=== PATIENT | female | born 1985 | race Caucasian/White ===

== ENCOUNTER 2018-07-06 09:00 | Emergency (ER) | payer OTHER ==
[2018-07-06 09:14] VITALS: BP 157/87
--- NOTE | 2018-07-06 09:28 | UC ---
Skin Complaint HPI - HPI Summary HPI Summary: had a little tenderness L earlobe (earring piercing) 3 days ago, became red and swollen yesterday, took earring out. today much worse, more swollen, very painful. now side of neck is painful as well - History of Current Complaint Chief Complaint: UCSkin Time Seen by Provider: 07/06/18 09:02 Stated Complaint: SKIN COMPLAINT Hx Obtained From: Patient Hx Last Menstrual Period: 3 weeks ago ?: No Onset/Duration: Gradual Onset Timing: Constant Onset Severity: Worse Since: - this am Pain Intensity: 5 Location: Ear (Left) Character: Swelling, Redness, Painful Aggravating Factor(s): Touch Alleviating Factor(s): Nothing Associated Signs & Symptoms: Positive: Drainage - "weepy" - Allergy/Home Medications Allergies/Adverse Reactions: Allergies Allergy/AdvReac Type Severity Reaction Status Date / Time No Known Allergies Allergy Verified 07/06/18 09:14 Home Medications: Home Medications Acetaminophen [Pain Relief] 1,000 mg PO ONCE PRN 07/06/18 [History Confirmed ] l-Norgest/E.estradiol-E.estrad [Seasonique 0.15-0.03-0.01 Tab] 1 tab PO DAILY [History Confirmed 07/06/18] PMH/Surg Hx/FS Hx/Imm Hx Previously Healthy: Yes - Surgical History Surgical History: None - Family History Known Family History: Positive: None Negative: Hypertension, Diabetes - Social History Occupation: Employed Full-time Lives: With Family Alcohol Use: Rare Substance Use Type: None Smoking Status (MU): Former Smoker Type: Cigarettes Amount Used/How Often: 1 ppd - quit 5 years ago - Immunization History Most Recent Influenza Vaccination: needed Most Recent Tetanus Shot: 12/25/12 Most Recent Pneumonia Vaccination: none Review of Systems All Other Systems Reviewed And Are Negative: Yes Constitutional: Positive: Negative ENT: Positive: Negative Respiratory: Positive: Negative Gastrointestinal: Positive: Negative Neurovascular: Positive: Negative Musculoskeletal: Positive: Negative Neurological: Positive: Negative Psychological: Positive: Negative Physical Exam Triage Information Reviewed: Yes Appearance: Well-Appearing, No Pain Distress, Well-Nourished Vital Signs: Initial Vital Signs Temp 98.9 F 07/06/18 09:08 Pulse 104 07/06/18 09:08 Resp 16 07/06/18 09:08 BP 157/87 07/06/18 09:08 Pulse Ox 100 07/06/18 09:08 Vital Signs Reviewed: Yes ENT: Positive: TMs normal Neck: Positive: Tenderness @ - L lateral neck, no streaking noted. Negative: Enlarged Nodes @ Respiratory Exam: Normal Cardiovascular Exam: Normal Neurological Exam: Normal Psychological Exam: Normal Skin: Positive: Other - l earlobe erythemic, swollen, very tender, no drainage Course/Dx - Differential Diagnoses - Skin Complaint Differential Diagnoses: Abscess, Cellulitis, Foreign Body - Diagnoses Provider Diagnosis: Cellulitis Discharge - Sign-Out/Discharge Documenting (check all that apply): Patient Departure All imaging exams completed and their final reports reviewed: No Studies - Discharge Plan Condition: Good Disposition: HOME Prescriptions: Cephalexin CAP* [Keflex CAP*] 500 mg PO QID #28 cap Mupirocin 2% OINT* [Bactroban 2 % Oint*] 1 applic TOPICAL BID #1 tube Patient Education Materials: Cellulitis (ED) Referrals: Handy Braun MD [Primary Care Provider] - 2 Days (if no better) Additional Instructions: apply warm packs to ear three times a day for 2-3 days start antibiotic and ointment as directed ibuprofen 600mg every 6 hours as needed for pain - Billing Disposition and Condition Condition: GOOD Disposition: Home - Attestation Statements Provider Attestation: I was available for consult. This patient was seen by the MAKEDA. The patient was not presented to , seen by or examined by me Malena Zhang MD
== END 2018-07-06 09:40 | disposition home or self-care (01) ==
LOC: UCEAST 09:00
DX: H60.12 Cellulitis of left external ear (principal); Z87.891 Personal history of nicotine dependence
CPT/HCPCS: 99212; G0463

== ENCOUNTER 2018-07-08 07:02 | Emergency (ER) | payer OTHER ==
[2018-07-08 07:14] VITALS: BP 144/94
[2018-07-08] MEDS ORDERED: Lidocaine 1% MPF* 2 ML VIAL INJ ONE (07:25)
[2018-07-08] MEDS ORDERED: Lidocaine 1%* 5 ML VIAL ONE (07:29)
--- NOTE | 2018-07-08 07:34 | UC ---
General HPI - HPI Summary HPI Summary: Stated 4 days ago had redness and swelling of left ear lobe. Seen in Urgent care on 07/06 and was diagnosed with cellulitis and started on keflex and bactroban. Patient took two full days of keflex. She is putting warm compresses on the ear with some drainage. The ear itself is feeling better but over the past 24 hours she has had severe left sided neck pain and shoulder pain. This morning she noticed redness streaking down the left side of her neck. She has been taking tylenol and ibuprofen around the clock so unclear if she has been having fevers. Feels run down. No N/V. Able to swallow and take PO without issue. Meds: reviewed. - History of Current Complaint Chief Complaint: Alan Stated Complaint: RECHECK EAR LOBE Time Seen by Provider: 07/08/18 07:11 Hx Last Menstrual Period: 3 weeks ago Pain Intensity: 5 - Allergy/Home Medications Allergies/Adverse Reactions: Allergies Allergy/AdvReac Type Severity Reaction Status Date / Time No Known Allergies Allergy Verified 07/08/18 07:14 PMH/Surg Hx/FS Hx/Imm Hx Previously Healthy: Yes - Surgical History Surgical History: Yes Surgery Procedure, Year, and Place: LEAP procedure - Family History Known Family History: Positive: None Negative: Hypertension, Diabetes - Social History Alcohol Use: Rare Substance Use Type: None Smoking Status (MU): Former Smoker Type: Cigarettes Amount Used/How Often: 1 ppd - quit 5 years ago When Did the Patient Quit Smoking/Using Tobacco: 10 yrs - Immunization History Most Recent Influenza Vaccination: needed Most Recent Tetanus Shot: 12/25/12 Most Recent Pneumonia Vaccination: none Review of Systems All Other Systems Reviewed And Are Negative: Yes Physical Exam Triage Information Reviewed: Yes Appearance: Well-Appearing, Pain Distress Vital Signs: Initial Vital Signs Temp 98.6 F 07/08/18 07:09 Pulse 110 07/08/18 07:09 Resp 16 07/08/18 07:09 BP 144/94 07/08/18 07:09 Pulse Ox 100 07/08/18 07:09 Vital Signs Reviewed: Yes Eye Exam: Normal Eyes: Positive: Conjunctiva Clear ENT: Positive: Other - left ear lobe, edematous and erythematous with dried purulent drainage, unable to express any fluid Neck: Positive: Other: - signficant tenderness and adenopathy over left neck with limited ROM Respiratory: Positive: Lungs clear, Normal breath sounds Cardiovascular: Positive: RRR, No Murmur Course/Dx - Course Course Of Treatment: This is a 32 yr old previously healthy female who presents with left ear lobe erythema and edema who has been on keflex for two days, now with left neck and shoulder pain. I am concerned for a deep neck space infection. Recommend go directly to the ER for blood culture, labs, and neck CT to evaluate for an abscess. Discussed that she may need to be admitted for IV antibiotics. If work up is unremarkable then likely needs broaded antibiotic regimen. Patient agreeable to plan and will drive directly to ER. [place]. Bernard [place] [facility] and provided sign out - Diagnoses Provider Diagnosis: Cellulitis and abscess of face Discharge - Sign-Out/Discharge Documenting (check all that apply): Patient Departure All imaging exams completed and their final reports reviewed: No Studies - Discharge Plan Condition: Good Disposition: HOME-RECOMMEND TO ED Referrals: Handy Braun MD [Primary Care Provider] - Additional Instructions: Recommend go directly to the [place] [facility] [place] for deep neck space infection Recommend blood culture, labs, CT of neck with contrast and likely you will require IV antibiotics pending results of work up. - Billing Disposition and Condition Condition: GOOD Disposition: Home-Recommend to ED
== END 2018-07-08 07:40 | disposition home health service (06) ==
LOC: UCEAST 07:02
DX: H60.12 Cellulitis of left external ear (principal); L02.01 Cutaneous abscess of face; M54.2 Cervicalgia; Z87.891 Personal history of nicotine dependence
CPT/HCPCS: 99212; G0463

== ENCOUNTER 2018-07-08 08:03 | Observation (INO) | payer OTHER ==
[2018-07-08] MEDS ORDERED: NS 0.9% 1000 ML** 1,000 ML IV.FLUID IV ONE (08:23)
--- NOTE | 2018-07-08 08:23 | ED ---
Skin Complaint - HPI Summary HPI Summary: Pt. is a 32 y.o female who presents to the ER for worsening left ear lobe infection. Pt. states she noticed mild soreness to her left ear lobe last week. She states she took earring out and pain progressively increased with redness and swelling. Pt. was seen at 2 days ago and started on Keflex. She returned to today because swelling and redness spread to left aspect of neck. Pt. denies past medical hx. Notes fever and chills. Denies associated symptoms of dysphasia or SOB. Symptoms are moderate in severity. Movement and touching affected area makes sxs worse. Nothing makes sxs better. - History of Current Complaint Chief Complaint: EDRashSkinAbscess Time Seen by Provider: 07/08/18 08:14 Stated Complaint: LEFT EAR PAIN Hx Obtained From: Patient Hx Last Menstrual Period: 3 weeks ago Pain Intensity: 4 - Allergy/Home Medications Allergies/Adverse Reactions: Allergies Allergy/AdvReac Type Severity Reaction Status Date / Time No Known Allergies Allergy Verified 07/08/18 08:09 PMH/Surg Hx/FS Hx/Imm Hx Previously Healthy: Yes Endocrine/Hematology History: Denies: Hx Diabetes, Hx Thyroid Disease Cardiovascular History: Denies: Hx Hypertension Respiratory History: Denies: Hx Asthma, Hx Chronic Obstructive Pulmonary Disease (COPD) GI History: Denies: Hx Ulcer Psychiatric History: Reports: Hx Anxiety - Surgical History Surgery Procedure, Year, and Place: LEAP procedure Infectious Disease History: No Infectious Disease History: Denies: Hx Clostridium Difficile, Hx Hepatitis, Hx Human Immunodeficiency Virus (HIV), Hx of Known/Suspected MRSA, Hx Shingles, Hx Tuberculosis, Traveled Outside the in Last 30 Days - Family History Known Family History: Positive: None Negative: Hypertension, Diabetes - Social History Occupation: Works From/At Home Lives: With Family Alcohol Use: Rare Substance Use Type: Reports: None Smoking Status (MU): Former Smoker Type: Cigarettes Amount Used/How Often: 1 ppd - quit 5 years ago Review of Systems Positive: Fever, Chills Eyes: Negative Positive: Other - left ear pain Cardiovascular: Negative Respiratory: Negative Gastrointestinal: Negative Positive: Other - left neck pain, swelling redness Positive: Other - swelling, redness to left ear lobe Neurological: Negative All Other Systems Reviewed And Are Negative: Yes Physical Exam Triage Information Reviewed: Yes Vital Signs On Initial Exam: Initial Vitals Temp Pulse Resp BP Pulse Ox 98.9 F 96 17 158/90 100 07/08/18 08:05 07/08/18 08:05 07/08/18 08:05 07/08/18 08:05 07/08/18 08:05 Vital Signs Reviewed: Yes Appearance: Positive: Well-Appearing - Pt. sitting up in bed in NAD. Skin: Positive: Warm, Dry Head/Face: Positive: Normal Head/Face Inspection Eyes: Positive: Normal, EOMI, KAREN, Conjunctiva Clear ENT: Positive: Other - Diffues induration and erythema noted to left ear lobe. No drainage. No fluctuance. Redness extends to left lateral neck with erythema. No induration to neck. Decreased ROM of neck secondary to pain. No mastoid tenderness. Neck: Positive: Supple. Negative: Nuchal Rigidity Respiratory/Lung Sounds: Positive: Clear to Auscultation, Breath Sounds Present Neurological: Positive: Normal, CN Intact II-III Psychiatric: Positive: Affect/Mood Appropriate Diagnostics - Vital Signs Vital Signs Temp Pulse Resp BP Pulse Ox 07/08/18 08:05 98.9 F 96 17 158/90 100 - Laboratory Result Diagrams: 07/08/18 08:33 07/08/18 08:33 Lab Statement: Any lab studies that have been ordered have been reviewed, and results considered in the medical decision making process. Course/Dx - Course Course Of Treatment: Pt. presenting for worsening cellulitis of left ear and now neck after 2.5 days of keflex. She is afebrile (has been talking tylenol and motrin at home). Labs and ct scan of neck ordered to evaluate for deep space infection. CT soft tissue neck per radiology: IMPRESSION: INFLAMMATORY CHANGE ALONG THE LEFT UPPER NECK. THIS MAY REPRESENT CELLULITIS GIVEN THE. CLINICAL HISTORY, THOUGH INFLAMMATORY CHANGE SECONDARY TO PAROTIDITIS MAY GIVE A SIMILAR. APPEARANCE. THERE IS NO LOCULATED FLUID COLLECTION TO SUGGEST ABSCESS. Labs are unremarkable other than CRP of 55. Given worsening infection despite antibx hospitalist ws consulted for admission. I spoke with Dr. Fleming, and pt has been accepted to her service. - Differential Diagnoses - Skin Complaint Differential Diagnoses: Abscess, Airway Obstruction, Cellulitis, MRSA - Diagnoses Provider Diagnoses: Cellulitis of ear, Cellulitis, neck Discharge - Sign-Out/Discharge Documenting (check all that apply): Patient Departure Patient Received Moderate/Deep Sedation with Procedure: No - Discharge Plan Condition: Stable Disposition: ADMITTED TO [facility] Referrals: Handy Braun MD [Primary Care Provider] - - Billing Disposition and Condition Condition: STABLE Disposition: Admitted to [facility]
[2018-07-08 08:44] LABS: ABS Basophils 0.1 10^3/ul (0-0.2); ABS Eosinophils 0.1 10^3/ul (0-0.6); ABS Lymphocytes 1.4 10^3/ul (1.0-4.8); ABS Monocytes 0.7 10^3/ul (0-0.8); ABS Neutrophils 5.5 10^3/ul (1.5-7.7); ABS Nucleated RBC 0 10^3/ul; Eosinophil % 0.8 %; Hematocrit 40 % (35-47); Hemoglobin 13.3 g/dl (12.0-16.0); Lymphocyte % 18.4 %; Mean Corpuscular HGB Conc 34 g/dl (31-36); Mean Corpuscular Hemoglobin 29 pg (27-31); Mean Corpuscular Volume 86 fL (80-97); Mean Platelet Volume 8.4 fL (7.4-10.4); Nucleated Red Blood Cells % 0; Platelet Count 264 10^3/ul (150-450); Red Blood Count 4.59 10^6/ul (4.00-5.40); Red Cell Distribution Width 13 % (10.5-15); White Blood Count 7.8 10^3/ul (3.5-10.8)
[2018-07-08] MEDS ORDERED: Iohexol 300* (CONTRAST) 10 ML SDV IV ONE (08:53)
[2018-07-08 09:02] LABS: Albumin 4.2 g/dL (3.2-5.2); Albumin/Globulin Ratio 1.2 (1-3); BUN/Creatinine Ratio 13.8 (8-20); C Reactive Protein 55.36 mg/L (<8.01); Calcium 9.4 mg/dL (8.6-10.3); Globulin 3.5 g/dL (2-4); Potassium 3.4 mmol/L (3.5-5.0); Total Bilirubin 0.2 mg/dL (0.2-1.0); Total Protein 7.7 g/dL (6.4-8.9)
[2018-07-08] MEDS ORDERED: Potassium Chlor TAB* 20 MEQ TAB.ER PO ONE (11:17)
[2018-07-08] MEDS ORDERED: Ibuprofen TAB* 600 MG ONE (11:44)
[2018-07-08] MEDS: Ibuprofen TAB* 600 MG PO PRN ×2 (11:48→22:36)
[2018-07-08] MEDS: Clindamycin 600 MG/D5W BAG(*) 600 MG/50 ML BAG IV SCH ×2 (14:29→21:10)
[2018-07-08] MEDS: Acetaminophen TAB* 325 MG PO PRN ×2 (17:57→22:36)
--- NOTE | 2018-07-08 18:31 | HP ---
CC: Dr. Braun * HISTORY AND PHYSICAL: DATE OF ADMISSION: 07/08/18 PROVIDER: Florin Garrison NP PRIMARY CARE PROVIDER: Dr. Braun. ATTENDING PHYSICIAN WHILE IN THE HOSPITAL: Dr. Kristina Fleming * (dictated by Florin Garrison NP). CHIEF COMPLAINT: Left ear swelling and left neck pain. HISTORY OF PRESENT ILLNESS: Ms. Eid is a 32-year-old female with no significant past medical history, who presented to the emergency room today from urgent care. The patient reports that a few days ago she developed a lump in her left ear. She reports it felt like a hard ball and she reports on Saturday it turned red and was itching and that her left earlobe was swelling. She was seen in urgent care on Saturday and was started on Keflex. She took 4 doses of Keflex Saturday and Saturday, but reports that she had progressive worsening of the left neck erythema and the left neck pain became worse. Due to this, she re-presented to urgent care today and was sent to the emergency room for further evaluation. While in the emergency room, the patient did have a CT of her neck, it did not show any abscess formation. She had routine lab work drawn and blood cultures. The patient was also found to be febrile with a temperature of 101.2. Due to the fever and failed outpatient oral antibiotics, we were asked to see and evaluate her for admission. PAST MEDICAL HISTORY: None. PAST SURGICAL HISTORY: LEEP procedure. HOME MEDICATIONS: 1. Keflex 500 mg q.i.d. 2. 1 tablet p.o. daily. 3. Motrin and Tylenol as needed for pain. 4. Mupirocin ointment topically b.i.d. to the left ear. ALLERGIES: No known drug allergies. FAMILY HISTORY: Maternal grandmother with a history of bypass surgery. Grandfather with a history of diabetes. Paternal, no reported history of cancer. SOCIAL HISTORY: The patient reports she quit smoking 10 plus years ago. Prior to that, she smoked for 9 to 10 years a pack a day. She does report rare alcohol use. Denies any illicit drug use. She is . Surrogate decision maker in the event she is unable to make her own decisions is her . She is a full code. REVIEW OF SYSTEMS: She denies any fever or chills. She denies any chest pain or edema, cough, hemoptysis or shortness of breath, nausea, vomiting, diarrhea or abdominal pain, hematuria, dysuria, focal weakness or sensory loss. Denies any visual complaints, dysphagia, arthralgias, or myalgias. She does complain of erythema to the left neck and swelling, erythema and scabbed lesion to her left earlobe. Denies any psychosis or anxiety. PHYSICAL EXAMINATION GENERAL: At this time, Ms. Eid is a 32-year-old female. She is sitting on the stretcher in the emergency room. She does not appear to be in any acute distress. HEENT: Head is atraumatic and normocephalic. Eyes: EOMs are intact. Sclerae anicteric and not pale. Oral mucosa appeared to be moist. NECK: With erythema noted to the left side of the neck, erythema to the left earlobe with a small abrasion. There is no drainage. There is crusting noted to the left earlobe. It is warm to touch. She does have submandibular lymphadenopathy. She does have lymphadenopathy noted to the cervical chain as well. LUNGS: Clear to auscultation bilaterally. No wheezes, rales, or rhonchi. CARDIAC: S1, S2. Regular rate and rhythm. No murmurs, rubs, or gallops. ABDOMEN: Soft and nontender. Bowel sounds are present x4. EXTREMITIES: She is able to move all 4 extremities with 5/5 strength. NEUROLOGIC: She is awake, alert, oriented x3. Speech is clear. Thought process is intact. No gross focal deficits. SKIN: She does have erythema noted to the left side of her neck and left earlobe as well as a scabbed area noted to the front of the earlobe. DIAGNOSTIC STUDIES/LAB DATA: WBCs were 7.8, RBCs 4.59, hemoglobin 13.3, hematocrit was 40, platelet count 264. Sodium 134, potassium 3.4, chloride 105 , carbon dioxide was 21, anion gap was 8, creatinine 0.58, lactic acid was 0.6. ASTs were 14, ALTs were 10, alkaline phosphatase was 69. C-reactive protein was 55.36. CT of the neck, radiologist's impression: Inflammatory changes in the left upper neck, which may represent cellulitis given the clinical history, though inflammatory changes secondary to parotitis may give a similar appearance. There is no loculated fluid collection to suggest abscess. ASSESSMENT AND PLAN: Ms. Eid is a 32-year-old female with no significant past medical history, who presented to the emergency room with left earlobe swelling and redness and left-sided neck pain. Due to the findings of cellulitis and failed outpatient antibiotic treatment, she will be admitted under observation for: 1. Cellulitis: I will place her on clindamycin 600 mg IV q.8 hours. We will observe her overnight. She can have Tylenol or Motrin as needed for pain. She can use warm packs to her neck and ear as needed for comfort. 2. Hypokalemia: I will give her potassium 40 mEq p.o. Repeat BMP in the a.m. 3. FEN: She can have a regular diet. 4. DVT prophylaxis: I will encourage ambulation as her risk score was 0. 5. Code status: She is a full code. TIME SPENT: Time spent on this admission was 60 minutes, greater than half that time was spent at the bedside reviewing events leading thus far to her hospitalization, performing my physical exam, and implementing my plan of care. I have discussed this with my attending, Dr. Kristina Fleming; she is in agreement with my plan. FLORIN GARRISON, GAS TRANSFER OPERATOR [id number]/[facility] #: [id number] DANNIE
[2018-07-08] MEDS: Mupirocin 2% OINT* TUBE TOPICAL SCH (21:11)
[2018-07-09] MEDS: Acetaminophen TAB* 325 MG PO PRN (03:13)
[2018-07-09] MEDS: Ibuprofen TAB* 600 MG PO PRN ×2 (05:36→12:06)
[2018-07-09] MEDS: Clindamycin 600 MG/D5W BAG(*) 600 MG/50 ML BAG IV SCH (05:37)
[2018-07-09] MEDS ORDERED: E ESTRADIOL E ESTRAD PO SCH (07:00)
[2018-07-09] MEDS ORDERED: NORGEST PO SCH (07:00)
[2018-07-09] MEDS: Mupirocin 2% OINT* TUBE TOPICAL SCH (08:22)
[2018-07-09] MEDS ORDERED: Lactobacillus Acidophilus* 1 TAB PO SCH (09:00)
--- NOTE | 2018-07-09 11:38 | DS ---
CC: Dr. Braun * DISCHARGE SUMMARY: DATE OF ADMISSION: 07/08/18 DATE OF DISCHARGE: 07/09/18 PRIMARY CARE PROVIDER: Dr. Braun from [place]. DISCHARGE DIAGNOSIS: Left ear cellulitis with neck cellulitis associated. MEDICATIONS AT DISCHARGE: Include: 1. Clindamycin 450 mg p.o. 3 times a day for a total of 5 days. 2. Ibuprofen 600 mg p.o. every 6 hours p.r.n. pain. 3. Lactobacillus 1 capsule b.i.d. 4. Mupirocin ointment 2% applied to affected area on the left earlobe b.i.d. 5. Seasonique 1 tablet daily. 6. Acetaminophen 500 mg on a p.r.n. basis. LABORATORY DATA AND STUDIES PERFORMED DURING THE HOSPITAL STAY: Unchanged from admission, and please refer to history and physical for this report. The patient's neck CT at admission showed: Impression: "Inflammatory change along the left upper neck. This might represent cellulitis given the clinical history, though inflammatory change secondary to parotitis may give similar appearance. There is no loculated fluid collection to suggest abscess". HOSPITALIZATION COURSE: Shena Eid is a 32-year-old female who presented to the hospital complaining of left earlobe and left side of the neck cellulitis that has been ongoing for 3 to 4 days. The patient was placed on Keflex as outpatient 2 days prior to the patient's admission with the cellulitis worsening during the treatment. The patient was admitted to the hospital, was noted to have no leukocytosis, but her C-reactive protein was elevated to 55. She had a temperature of 101.2 on her evaluation in the ED prior to admission. She was placed on clindamycin with very good results. By the time of discharge , her left earlobe still has an area of wound, less than 1 cm in the area of an old piercing with some slough on the bottom of the wound, but the surrounding cellulitis on the neck and in the left earlobe appears to have resolved. The patient did have an episode of one loose stool during the hospital stay when treated with clindamycin. She was advised to use probiotic with clindamycin. She was also educated about possibility of Clostridium difficile diarrhea and to come into the hospital if she develops diarrhea or frequent bowel movements over 5 times a day. The patient recommended to follow up with Dr. Kade in approximately 3 to 7 days. Please note that this is a short summary of the patient's hospitalization. Please refer to further medical records for details. [id number]/[facility] #: [id number] MTDD
[2018-07-09] MEDS ORDERED: Clindamycin 600 MG/D5W BAG(*) 600 MG/50 ML BAG IV ONE (12:00)
[2018-07-09 12:25] VITALS: BP 119/74
== END 2018-07-09 13:30 | disposition home or self-care (01) ==
LOC: ED 08:03 → MED 11:57
PROVIDERS: ADMIT Internal Medicine; ATTEND Internal Medicine
DX: H60.12 Cellulitis of left external ear (principal); L03.221 Cellulitis of neck; H92.02 Otalgia, left ear; Z87.891 Personal history of nicotine dependence; R50.9 Fever, unspecified
CPT/HCPCS: 36415; 70491; 80053; 83605; 85025; 86140; 87040; 96361; 96365; 96366; 99283; A9270-GY; G0378; Q9967

== ENCOUNTER 2019-04-28 17:10 | Emergency (ER) | payer BC ==
[2019-04-28 17:39] VITALS: BP 136/71
--- NOTE | 2019-04-28 17:55 | UC ---
Dental HPI - HPI Summary HPI Summary: 33 yo with onset of gum swelling and pain today in a tooth which has known decay and fracture. She is scheduled for dental visit on 05/04/19. Using alternating ibuprofen and acetaminophen for control of pain. - History of Current Complaint Chief Complaint: UCDentalProblem Stated Complaint: DENTAL COMPLAINT Time Seen by Provider: 04/28/19 17:44 Hx Obtained From: Patient Hx Last Menstrual Period: 3 weeks ago Onset/Duration: Sudden Onset Severity: Moderate Pain Intensity: 4 Aggravating Factor(s): Heat, Cold, Chewing Alleviating Factor(s): OTC Meds Related History: Previous Dental Care on Same Tooth - Allergies/Home Medications Allergies/Adverse Reactions: Allergies Allergy/AdvReac Type Severity Reaction Status Date / Time No Known Allergies Allergy Verified 04/28/19 17:39 PMH/Surg Hx/FS Hx/Imm Hx Previously Healthy: Yes - Surgical History Surgical History: Yes Surgery Procedure, Year, and Place: LEAP procedure - Family History Known Family History: Positive: Non-Contributory Negative: Hypertension, Diabetes - Social History Occupation: Employed Full-time Lives: With Family Alcohol Use: Rare Substance Use Type: None Smoking Status (MU): Former Smoker Type: Cigarettes Amount Used/How Often: 1 ppd - quit 5 years ago When Did the Patient Quit Smoking/Using Tobacco: 10 yrs - Immunization History Most Recent Influenza Vaccination: needed Most Recent Tetanus Shot: 12/25/12 Most Recent Pneumonia Vaccination: none Review of Systems All Other Systems Reviewed And Are Negative: Yes Constitutional: Positive: Negative Skin: Positive: Negative Eyes: Positive: Negative ENT: Positive: Dental Pain, Ear Ache Respiratory: Positive: Negative Cardiovascular: Positive: Negative Genitourinary: Positive: Negative Motor: Positive: Negative Neurovascular: Positive: Negative Musculoskeletal: Positive: Negative Neurological: Positive: Negative Psychological: Positive: Negative Is Patient Immunocompromised?: No Physical Exam Triage Information Reviewed: Yes Appearance: Well-Appearing, Pain Distress - mild to moderate Vital Signs: Initial Vital Signs Temp 99.8 F 04/28/19 17:35 Pulse 80 04/28/19 17:35 Resp 16 04/28/19 17:35 BP 136/71 04/28/19 17:35 Pulse Ox 100 04/28/19 17:35 Eyes: Positive: Conjunctiva Clear ENT: Positive: Pharynx normal Dental: Positive: Gross Decay/Caries @ [facility] Dental: 1 - abscess visible along gumline. Gross decay. Dental Complaint Course/Dx - Course Course Of Treatment: pen VK for treatment of dental abscess, continue alternating acetaminophen and ibuprofen for control of pain. She plans to use back up contraception--does not want any risk of . - Differential Dx/Diagnosis Differential Diagnosis/Dx: Dental Abscess, Dental Caries Provider Diagnosis: Dental abscess Discharge ED - Sign-Out/Discharge Documenting (check all that apply): Patient Departure All imaging exams completed and their final reports reviewed: No Studies - Discharge Plan Condition: Stable Disposition: HOME Prescriptions: Penicillin VK 500 MG TAB(NF) [Penicillin VK 500 mg Tab] 500 mg PO QID #28 tab Patient Education Materials: Dental Abscess (ED) Referrals: No Primary Care Phys,NOPCP [Primary Care Provider] - Additional Instructions: For the next 2 days, you can increase use of ibuprofen to 800mg and continue alternating acetaminophen 650mg every 6 hours. Take 2 capsules of penicillin when you flower picker the prescription, and take an additional dose before bed tonight. Follow up as arranged with your dentist on 05/04, but follow up if you have increasing fever or swelling despite treatment. - Billing Disposition and Condition Condition: STABLE Disposition: Home
== END 2019-04-28 18:06 | disposition home or self-care (01) ==
LOC: UCCORT 17:10
DX: K04.7 Periapical abscess without sinus (principal); K02.9 Dental caries, unspecified; S02.5XXA Fracture of tooth (traumatic), initial encounter for closed fracture; Z87.891 Personal history of nicotine dependence; X58.XXXA Exposure to other specified factors, initial encounter; Y92.9 Unspecified place or not applicable
CPT/HCPCS: 99212; G0463